=== PATIENT | male | born 1960 | race Caucasian/White ===

== ENCOUNTER 2019-06-22 11:19 | Inpatient (IN) | payer MEDICAID ==
[~2019-06-22] VITALS: Ht 182.9 cm; Wt 59.9 kg
[2019-06-22] MEDS ORDERED: SODIUM CHLORIDE 0.9% 1,000 ML IV ONE (11:38)
[2019-06-22 12:36] LABS: BASOPHILS % 0.8 % (0.0-2.0); EOSINOPHILS % 1.7 % (0.0-5.0); HEMATOCRIT. 39.7 % (42.0-52.0); HEMOGLOBIN. 13.6 g/dL (14.0-18.0); MEAN CORPUSCULAR HEMOGLOBIN 31.8 pg (28.0-32.0); MEAN CORPUSCULAR VOLUME 92.7 fL (80.0-94.0); MEAN PLATELET VOLUME 8.3 fl (7.4-10.4); MONOCYTES % 8.4 % (2.0-8.0); NEUTROPHILS % 72.1 % (40.0-76.0); PLATELET 246 x1000/uL (130-400); RED BLOOD CELL COUNT 4.28 mill/uL (4.7-6.1); RED CELL DISTRIBUTION WIDTH 14.1 % (11.6-14.6)
[2019-06-22 12:42] LABS: CHLORIDE 110 mEq/L (98-107)
[2019-06-22 12:43] LABS: PROTHROMBIN TIME 10.4 sec (9.6-11.0)
[2019-06-22 12:45] LABS: ETHANOL BLOOD < 10 mg/dL
[2019-06-22] MEDS ORDERED: ASPIRIN 325MG EC TABLET PO ONE (13:30)
[2019-06-22 15:24] LABS: CLARITY URINE CLEAR (CLEAR); COLOR URINE YELLOW (YELLOW); KETONES URINE NEGATIVE (NEGATIVE); LEUKOCYTE ESTERASE URINE NEGATIVE (NEGATIVE); NITRITE URINE NEGATIVE (NEGATIVE); OCCULT BLOOD URINE NEGATIVE (NEGATIVE); PROTEIN URINE NEGATIVE (NEGATIVE); SPECIFIC GRAVITY URINE 1.014 (1.005-1.030); UROBILINOGEN URINE 0.2 E.U./dL (0.2-1.0)
[2019-06-22 16:07] LABS: *AMPHETAMINES SCREEN URINE NEGATIVE (NEGATIVE); *BARBITURATES SCREEN URINE NEGATIVE (NEGATIVE); *BENZODIAZEPINES SCREEN URINE NEGATIVE (NEGATIVE); *COCAINE SCREEN URINE NEGATIVE (NEGATIVE); METHADONE URINE SCREEN NEGATIVE (NEGATIVE)
[2019-06-22 16:08] LABS: CANNABINOID URINE SCREEN PRESUMTIVE POSITIVE (NEGATIVE); OPIATES URINE SCREEN NEGATIVE (NEGATIVE); PHENCYCLIDINE URINE SCREEN NEGATIVE (NEGATIVE)
[2019-06-22] MEDS ORDERED: IPRATROPIUM/ALBUTEROL 0.5-3(2.5)MG/3ML NEB HHN PRN (16:30)
[2019-06-22] MEDS ORDERED: ACETAMINOPHEN 325MG TABLET PO PRN (16:30)
[2019-06-22] MEDS ORDERED: GUAIFENESIN 200MG/10ML SUGAR FREE UDC PO PRN (16:30)
[2019-06-22] MEDS ORDERED: MORPHINE SULFATE 2 MG/ML CPJ (NOT FOR IM USE) IV PRN (16:30)
[2019-06-22] MEDS ORDERED: CLONIDINE 0.1MG TABLET PO PRN (16:30)
[2019-06-22] MEDS ORDERED: MAGNESIUM/ALUMINUM HYDROXIDE/SIMETHICONE 30ML UDC PO PRN (16:30)
[2019-06-22] MEDS ORDERED: LORAZEPAM 2MG/ML CPJ IV PRN (16:30)
[2019-06-22] MEDS ORDERED: HYDRALAZINE 20MG/ML VIAL IV PRN (16:30)
[2019-06-22] MEDS ORDERED: DOCUSATE SODIUM 100MG CAPSULE PO PRN (16:30)
[2019-06-22] MEDS ORDERED: ONDANSETRON HCL 4MG/2ML INJ IV PRN (16:30)
[2019-06-23 00:23] LABS: CREATINE KINASE 128 IU/L (39-308)
[2019-06-23 00:24] LABS: CREATINE KINASE MB FRACTION 1.6 ng/mL (0.5-3.6)
[2019-06-23 05:40] LABS: BASOPHILS % 0.8 % (0.0-2.0); HEMATOCRIT. 39.1 % (42.0-52.0); HEMOGLOBIN. 13.1 g/dL (14.0-18.0); LYMPHOCYTES % 17.5 % (20.0-50.0); MEAN CORPUSCULAR HEMOGLOBIN 31.1 pg (28.0-32.0); MEAN CORPUSCULAR VOLUME 92.8 fL (80.0-94.0); MEAN PLATELET VOLUME 7.9 fl (7.4-10.4); MONOCYTES % 9.4 % (2.0-8.0); NEUTROPHILS % 70.3 % (40.0-76.0); PLATELET 218 x1000/uL (130-400); RED BLOOD CELL COUNT 4.22 mill/uL (4.7-6.1); RED CELL DISTRIBUTION WIDTH 14.2 % (11.6-14.6)
[2019-06-23 05:54] LABS: CHLORIDE 110 mEq/L (98-107)
[2019-06-23 06:09] LABS: CREATINE KINASE 123 IU/L (39-308)
[2019-06-23 06:11] LABS: CREATINE KINASE MB FRACTION 1.1 ng/mL (0.5-3.6)
[2019-06-23] MEDS: ENOXAPARIN 30MG/0.3ML SYR SUBCUT SCH ×2 (09:20→21:13)
[2019-06-23 16:00] VITALS: BP 136/82
[2019-06-23 17:12] VITALS: BP 140/79
[2019-06-23] MEDS ORDERED: PROP10TA10 PO (18:42)
[2019-06-23] MEDS ORDERED: SIMV-43 PO (18:42)
[2019-06-23] MEDS ORDERED: AMLO5TAB4 PO (18:42)
[2019-06-23] MEDS ORDERED: ISON300T19 PO (18:42)
[2019-06-23] MEDS ORDERED: PRIL20 PO (18:42)
[2019-06-23] MEDS ORDERED: PYRI50TA12 PO (18:42)
[2019-06-23 20:00] VITALS: BP 118/70
[2019-06-23] MEDS ORDERED: LATA2.5D2 EACHEYE (20:12)
[2019-06-23] MEDS: SODIUM CHLORIDE 0.9% INJ 3ML FLUSH IVF SCH (21:13)
[2019-06-23] MEDS: DIPHENHYDRAMINE 50MG/ML VIAL IV PRN (21:22)
[2019-06-24] VITALS: BP 100/75
[2019-06-24 04:00] VITALS: BP 102/69
[2019-06-24 08:00] VITALS: BP_SYST 119; BP_SYST 125; BP_SYST 127; BP_DIAS 79; BP_DIAS 80; BP_DIAS 85
[2019-06-24] MEDS: ENOXAPARIN 30MG/0.3ML SYR SUBCUT SCH (08:26)
[2019-06-24] MEDS: SODIUM CHLORIDE 0.9% INJ 3ML FLUSH IVF SCH ×4 (08:27→21:11)
[2019-06-24 12:00] VITALS: BP 121/76
[2019-06-24 16:00] VITALS: BP 125/83
[2019-06-24 18:08] LABS: VITAMIN B12 SERUM 467 pg/mL (211-911)
[2019-06-24 20:00] VITALS: BP_SYST 134; BP_SYST 137; BP_SYST 138; BP_DIAS 76; BP_DIAS 79; BP_DIAS 81
[2019-06-24] MEDS: DIPHENHYDRAMINE 50MG/ML VIAL IV PRN (20:33)
[2019-06-24] MEDS: HYDROCODONE/ACETAMINOPHEN 10/325MG TABLET PO PRN (20:35)
[2019-06-25] VITALS: BP_SYST 134; BP_SYST 137; BP_SYST 138; BP_DIAS 76; BP_DIAS 79; BP_DIAS 81
[2019-06-25] MEDS: HYDROCODONE/ACETAMINOPHEN 10/325MG TABLET PO PRN ×3 (01:51→21:16)
[2019-06-25 04:00] VITALS: BP_SYST 108; BP_SYST 121; BP_DIAS 67; BP_DIAS 78
[2019-06-25] MEDS: SODIUM CHLORIDE 0.9% INJ 3ML FLUSH IVF SCH ×3 (05:27→21:33)
[2019-06-25 08:00] VITALS: BP 116/70
[2019-06-25 12:00] VITALS: BP 138/79
[2019-06-25] MEDS: ENOXAPARIN 40MG/0.4ML SYR SUBCUT SCH (12:14)
[2019-06-25 16:00] VITALS: BP_SYST 125; BP_SYST 127; BP_SYST 131; BP_DIAS 75; BP_DIAS 76; BP_DIAS 79
[2019-06-25 20:00] VITALS: BP 127/89
[2019-06-26] VITALS: BP 121/77
[2019-06-26 04:00] VITALS: BP 112/78
[2019-06-26] MEDS: SODIUM CHLORIDE 0.9% INJ 3ML FLUSH IVF SCH ×2 (06:28→13:59)
[2019-06-26] MEDS ORDERED: MELO-104 PO (07:05)
[2019-06-26] MEDS ORDERED: HYDR12.54 PO (07:05)
[2019-06-26] MEDS ORDERED: ZIPR80CA2 PO (07:05)
[2019-06-26 08:00] VITALS: BP 109/71
[2019-06-26] MEDS: ENOXAPARIN 40MG/0.4ML SYR SUBCUT SCH (09:01)
[2019-06-26 12:00] VITALS: BP 129/77
[2019-06-26 12:51] VITALS: BP 129/77
== END 2019-06-26 13:55 | disposition home or self-care (01) | DRG 48 ==
LOC: ER 11:19 → 5WST 06-23 13:56 → ENRESERV 06-23 14:43
PROVIDERS: ADMIT Internal Medicine; ATTEND Internal Medicine
PROC: 5A12012 Performance of Cardiac Output, Single, Manual (ICD-10-PCS; 2019-06-23)
PROC: 4A10X4Z Monitoring of Central Nervous Electrical Activity, External Approach (ICD-10-PCS; principal; 2019-06-25)
DX: G90.8 Other disorders of autonomic nervous system (principal); G93.40 Encephalopathy, unspecified; E87.8 Other disorders of electrolyte and fluid balance, not elsewhere classified; I27.20 Pulmonary hypertension, unspecified; D64.9 Anemia, unspecified; E78.5 Hyperlipidemia, unspecified; F17.210 Nicotine dependence, cigarettes, uncomplicated; I10 Essential (primary) hypertension; I44.0 Atrioventricular block, first degree; J44.9 Chronic obstructive pulmonary disease, unspecified; E78.00 Pure hypercholesterolemia, unspecified; I36.1 Nonrheumatic tricuspid (valve) insufficiency; F12.10 Cannabis abuse, uncomplicated; Z79.899 Other long term (current) drug therapy
CPT/HCPCS: 36415; 71045; 80053; 80061; 80305; 80320; 81003; 82140; 82550; 82553; 82607; 82962; 84443; 84484; 85025; 85379; 93005; 93306; 93880; 93970; 97116; 97162; 99285; J1200; J1650; J7030; G0480

== ENCOUNTER 2019-11-28 10:36 | Emergency (ER) | payer MEDICAID ==
[~2019-11-28] VITALS: Ht 172.7 cm; Wt 90.0 kg
[~2019-11-28 10:36] MED LIST: AMLO5TAB4 PO; HYDR12.54 PO; ISON300T19 PO; MELO-104 PO; PRIL20 PO; PROP10TA10 PO; SIMV-43 PO; ZIPR80CA2 PO
[2019-11-28 10:41] VITALS: BP 115/63
[2019-11-28 11:29] LABS: BASOPHILS % 0.5 % (0.0-2.0); EOSINOPHILS % 1.3 % (0.0-5.0); HEMATOCRIT. 39.4 % (42.0-52.0); HEMOGLOBIN. 13.5 g/dL (14.0-18.0); LYMPHOCYTES % 14.5 % (20.0-50.0); MEAN CORPUSCULAR HEMOGLOBIN 31.7 pg (28.0-32.0); MEAN CORPUSCULAR VOLUME 92.9 fL (80.0-94.0); MONOCYTES % 8.9 % (2.0-8.0); NEUTROPHILS % 74.8 % (40.0-76.0); PLATELET 215 x1000/uL (130-400); RED BLOOD CELL COUNT 4.24 mill/uL (4.7-6.1); RED CELL DISTRIBUTION WIDTH 13.5 % (11.6-14.6)
[2019-11-28 11:35] LABS: CHLORIDE 106 mEq/L (98-107)
[2019-11-28 11:45] LABS: ETHANOL BLOOD < 10 mg/dL
[2019-11-28 12:49] LABS: CLARITY URINE CLEAR (CLEAR); COLOR URINE YELLOW (YELLOW); KETONES URINE NEGATIVE (NEGATIVE); LEUKOCYTE ESTERASE URINE NEGATIVE (NEGATIVE); NITRITE URINE NEGATIVE (NEGATIVE); OCCULT BLOOD URINE NEGATIVE (NEGATIVE); PH URINE 5.5 (4.5-8.0); PROTEIN URINE NEGATIVE (NEGATIVE); SPECIFIC GRAVITY URINE 1.016 (1.005-1.030); UROBILINOGEN URINE 0.2 E.U./dL (0.2-1.0)
[2019-11-28 13:01] LABS: *BARBITURATES SCREEN URINE NEGATIVE (NEGATIVE); *BENZODIAZEPINES SCREEN URINE NEGATIVE (NEGATIVE); *COCAINE SCREEN URINE NEGATIVE (NEGATIVE)
[2019-11-28 13:02] LABS: *AMPHETAMINES SCREEN URINE NEGATIVE (NEGATIVE); CANNABINOID URINE SCREEN NEGATIVE (NEGATIVE); METHADONE URINE SCREEN NEGATIVE (NEGATIVE); OPIATES URINE SCREEN NEGATIVE (NEGATIVE); PHENCYCLIDINE URINE SCREEN NEGATIVE (NEGATIVE)
== END 2019-11-28 13:06 | disposition home or self-care (01) ==
LOC: ER 10:36
DX: G93.40 Encephalopathy, unspecified (principal); R53.1 Weakness; J44.9 Chronic obstructive pulmonary disease, unspecified; E78.00 Pure hypercholesterolemia, unspecified; I10 Essential (primary) hypertension; F20.9 Schizophrenia, unspecified; F17.290 Nicotine dependence, other tobacco product, uncomplicated; Z79.899 Other long term (current) drug therapy; Z88.0 Allergy status to penicillin
CPT/HCPCS: 36415; 80053; 80305; 80307; 80320; 80329; 81003; 85025; 93005; 99284; G0480

== ENCOUNTER 2020-06-17 17:27 | Emergency (ER) | payer MEDICAID ==
[~2020-06-17] VITALS: Ht 182.9 cm; Wt 90.0 kg
[2020-06-17] MEDS ORDERED: SODIUM CHLORIDE 0.9% 1,000 ML IV ONE (17:45)
[2020-06-17 18:18] LABS: BASOPHILS % 0.6 % (0.0-2.0); EOSINOPHILS % 2.1 % (0.0-5.0); HEMATOCRIT. 40.4 % (42.0-52.0); HEMOGLOBIN. 13.8 g/dL (14.0-18.0); LYMPHOCYTES % 19.7 % (20.0-50.0); MEAN CORPUSCULAR HEMOGLOBIN 31.8 pg (28.0-32.0); MEAN CORPUSCULAR VOLUME 93.1 fL (80.0-94.0); MEAN PLATELET VOLUME 7.7 fl (7.4-10.4); NEUTROPHILS % 67.6 % (40.0-76.0); PLATELET 228 x1000/uL (130-400); RED BLOOD CELL COUNT 4.34 mill/uL (4.7-6.1); RED CELL DISTRIBUTION WIDTH 13.4 % (11.6-14.6)
[2020-06-17 18:35] LABS: CLARITY URINE CLEAR (CLEAR); COLOR URINE YELLOW (YELLOW); KETONES URINE TRACE (NEGATIVE); LEUKOCYTE ESTERASE URINE NEGATIVE (NEGATIVE); NITRITE URINE NEGATIVE (NEGATIVE); OCCULT BLOOD URINE NEGATIVE (NEGATIVE); PROTEIN URINE 2+ (NEGATIVE); SPECIFIC GRAVITY URINE 1.021 (1.005-1.030); UROBILINOGEN URINE 0.2 E.U./dL (0.2-1.0)
[2020-06-17 18:37] LABS: CHLORIDE 108 mEq/L (98-107)
[2020-06-17 18:45] LABS: ETHANOL BLOOD < 10 mg/dL
[2020-06-17 18:56] LABS: *AMPHETAMINES SCREEN URINE NEGATIVE (NEGATIVE); *BARBITURATES SCREEN URINE NEGATIVE (NEGATIVE); *BENZODIAZEPINES SCREEN URINE NEGATIVE (NEGATIVE); *COCAINE SCREEN URINE NEGATIVE (NEGATIVE)
[2020-06-17 18:57] LABS: CANNABINOID URINE SCREEN PRESUMTIVE POSITIVE (NEGATIVE); METHADONE URINE SCREEN NEGATIVE (NEGATIVE); OPIATES URINE SCREEN NEGATIVE (NEGATIVE); PHENCYCLIDINE URINE SCREEN NEGATIVE (NEGATIVE)
[2020-06-18 01:19] VITALS: BP 125/87
== END 2020-06-18 01:22 | disposition home or self-care (01) ==
LOC: ER 17:27
DX: G92 Toxic encephalopathy (principal); R42 Dizziness and giddiness; F20.9 Schizophrenia, unspecified; J44.9 Chronic obstructive pulmonary disease, unspecified; E78.00 Pure hypercholesterolemia, unspecified; I10 Essential (primary) hypertension; F12.10 Cannabis abuse, uncomplicated; Z79.899 Other long term (current) drug therapy; Z88.0 Allergy status to penicillin
CPT/HCPCS: 36415; 70450; 71045; 80053; 80305; 80307; 80320; 80329; 81003; 84484; 85025; 96360; 96361; 99285; J7030; G0480